=== PATIENT | female | born 1990 | race Caucasian/White ===

== ENCOUNTER 2018-03-10 12:50 | Inpatient (IN) | payer OTHER ==
[~2018-03-10] VITALS: Ht 162.6 cm; Wt 85.3 kg
[2018-03-10] MEDS ORDERED: RINGERS SOLUTION,LACTATED 1,000 ML IV PRN (12:55)
[2018-03-10] MEDS ORDERED: OXYTOCIN 30 UNITS/LACT RINGERS 500 ML IV ONE (12:55)
[2018-03-10] MEDS ORDERED: PNV1TABL54 PO (12:55)
[2018-03-10] MEDS ORDERED: CITRIC ACID/SODIUM CITRATE 30 ML SOLUTION UDCUP PO PRN (13:00)
[2018-03-10] MEDS ORDERED: LIDOCAINE HCL/PF 1% 30 ML VIAL INJ PRN (13:00)
[2018-03-10] MEDS ORDERED: METOCLOPRAMIDE HCL 5 MG/ML 2 ML VIAL IVP PRN (13:00)
[2018-03-10] MEDS ORDERED: OXYGEN THERAPY IH SCH (13:00)
[2018-03-10 13:23] LABS: BASOPHILS % (AUTO) 0.3 % (0.0-2.0); EOSINOPHILS % (AUTO) 0.4 % (1.0-6.0); HEMATOCRIT 38.8 % (36-46); HEMOGLOBIN 13.5 g/dL (12.0-16.0); LYMPHOCYTES # (AUTO) 2.7 K/uL (1.0-4.8); LYMPHOCYTES % (AUTO) 22.2 % (22.0-44.0); MEAN CORPUSCULAR HEMOGLOBIN 32.5 pg (26.0-34.0); MEAN CORPUSCULAR HGB CONC 34.8 G/dL (31.0-37.0); MEAN CORPUSCULAR VOLUME 93 fL (80-100); MONOCYTES # (AUTO) 0.6 K/uL (0.1-1.0); MONOCYTES % (AUTO) 5.1 % (2.0-9.0); NEUTROPHILS # (AUTO) 8.8 K/uL (1.8-7.7); PLATELET COUNT (AUTO) 242 K/uL (150-450); RED BLOOD CELL COUNT(AUTO) 4.15 MIL/uL (4.00-5.20); RED CELL DISTRIBUTION WIDTH 13.1 % (11.5-14.5)
[2018-03-10 13:40] VITALS: BP 116/72
[2018-03-10] MEDS ORDERED: DINOPROSTONE 10 MG VAGINAL SUPPOSITORY VG ONE (14:15)
[2018-03-10] MEDS: RINGERS SOLUTION,LACTATED 1,000 ML IV SCH ×3 (17:21→23:01)
[2018-03-10] MEDS: FentaNYL CITRATE-PF 100 MCG/2 ML VIAL IVP PRN ×4 (18:26→19:36)
[2018-03-10] MEDS ORDERED: ROPIVACAINE HCL/PF 0.2% 100 ML ED ONE (20:13)
[2018-03-10] MEDS ORDERED: LIDOCAINE HCL/PF 2% 5 ML VIAL ONE (20:37)
[2018-03-10] MEDS ORDERED: BUPIVACAINE HCL/PF 0.25% 10 ML VIAL ONE (21:42)
[2018-03-10] MEDS ORDERED: FentaNYL/BUPIV 0.125%/NS/PF 200 ML ED PRN (22:12)
[2018-03-10] MEDS ORDERED: ONDANSETRON HCL 4 MG/2 ML VIAL IVP PRN (22:15)
[2018-03-10] MEDS ORDERED: NALBUPHINE HCL 10 MG/ML VIAL IVP PRN (22:15)
[2018-03-10] MEDS ORDERED: DiphenhydrAMINE HCL 50 MG/ML VIAL IVP PRN (22:15)
[2018-03-11] MEDS ORDERED: OXYTOCIN 20 UNITS/LACT RINGERS 1,000 ML IV SCH (00:19)
[2018-03-11] MEDS ORDERED: ACETAMINOPHEN/CODEINE 300-30 MG TABLET PO PRN (00:30)
[2018-03-11] MEDS ORDERED: SENNA/DOCUSATE SODIUM 187-50 MG TABLET PO PRN (00:30)
[2018-03-11] MEDS ORDERED: LANOLIN 7 GM OINTMENT TP PRN (00:30)
[2018-03-11] MEDS ORDERED: BENZOCAINE 20%/MENTHOL 56 GM SPRAY CANISTER TP PRN (00:30)
[2018-03-11] MEDS ORDERED: GLYCERIN/WITCH HAZEL LEAF 40 PADS JAR TP PRN (00:30)
[2018-03-11] MEDS ORDERED: MEASLES/MUMPS/RUBELLA VACCINE, LIVE 0.5 ML/VIAL SQ ONE (00:30)
[2018-03-11] MEDS: IBUPROFEN 600 MG TABLET PO PRN ×2 (02:59→21:02)
[2018-03-11] MEDS: MAGNESIUM HYDROXIDE SUSPENSION 30 ML UDCUP PO PRN ×2 (08:43→21:02)
[2018-03-12 05:50] LABS: BASOPHILS % (AUTO) 0.2 % (0.0-2.0); EOSINOPHILS % (AUTO) 0.7 % (1.0-6.0); HEMATOCRIT 33.3 % (36-46); HEMOGLOBIN 11.5 g/dL (12.0-16.0); LYMPHOCYTES # (AUTO) 3.6 K/uL (1.0-4.8); LYMPHOCYTES % (AUTO) 30.9 % (22.0-44.0); MEAN CORPUSCULAR HEMOGLOBIN 32.3 pg (26.0-34.0); MEAN CORPUSCULAR HGB CONC 34.4 G/dL (31.0-37.0); MEAN CORPUSCULAR VOLUME 94 fL (80-100); MONOCYTES # (AUTO) 0.7 K/uL (0.1-1.0); MONOCYTES % (AUTO) 6.1 % (2.0-9.0); NEUTROPHILS # (AUTO) 7.3 K/uL (1.8-7.7); NEUTROPHILS % (AUTO) 62.1 % (40.0-70.0); PLATELET COUNT (AUTO)-OB 201 K/uL (150-450); RED BLOOD CELL COUNT(AUTO) 3.54 MIL/uL (4.00-5.20); RED CELL DISTRIBUTION WIDTH 13.1 % (11.5-14.5)
[2018-03-12] MEDS: IBUPROFEN 600 MG TABLET PO PRN (05:55)
[2018-03-12] MEDS: MAGNESIUM HYDROXIDE SUSPENSION 30 ML UDCUP PO PRN (09:05)
[2018-03-12] MEDS ORDERED: IBUP-2071 PO (09:39)
[2018-03-12] MEDS ORDERED: DSS100 PO (09:39)
[2018-03-12] MEDS ORDERED: FERR-89 PO (09:40)
== END 2018-03-12 11:40 | disposition home or self-care (01) | DRG 775 ==
LOC: 4S 12:50 → OBSVTOIN 12:50
PROVIDERS: ADMIT Obstetrics & Gynecology; ATTEND Obstetrics & Gynecology
PROC: 10E0XZZ Delivery of Products of Conception, External Approach (ICD-10-PCS; principal; 2018-03-11)
PROC: 0UQMXZZ Repair Vulva, External Approach (ICD-10-PCS; 2018-03-11)
PROC: 0UQGXZZ Repair Vagina, External Approach (ICD-10-PCS; 2018-03-11)
PROC: 3E033VJ Introduction of Other Hormone into Peripheral Vein, Percutaneous Approach (ICD-10-PCS; 2018-03-11)
PROC: 3E0R3BZ Introduction of Anesthetic Agent into Spinal Canal, Percutaneous Approach (ICD-10-PCS; 2018-03-11)
PROC: 00HU33Z Insertion of Infusion Device into Spinal Canal, Percutaneous Approach (ICD-10-PCS; 2018-03-11)
DX: O71.4 Obstetric high vaginal laceration alone (principal); O71.82 Other specified trauma to perineum and vulva; Z3A.41 41 weeks gestation of pregnancy; Z37.0 Single live birth
CPT/HCPCS: 86850; 86900; 86901; J2590; J2795; J3010; J3490; J7120

== ENCOUNTER 2019-09-27 20:20 | Inpatient (IN) | payer OTHER ==
[~2019-09-27] VITALS: Ht 161 cm; Wt 86.2 kg
[~2019-09-27 20:20] MED LIST: DSS100 PO; FERR-89 PO; IBUP-2071 PO; PNV1TABL54 PO
[2019-09-27 21:50] VITALS: BP 122/69
[2019-09-28] MEDS ORDERED: RINGERS SOLUTION,LACTATED 1,000 ML IV PRN (00:06)
[2019-09-28] MEDS ORDERED: OXYTOCIN 30 UNITS/LACT RINGERS 500 ML IV PRN (00:06)
[2019-09-28] MEDS ORDERED: OXYTOCIN 30 UNITS/LACT RINGERS 500 ML IV ONE (00:06)
[2019-09-28] MEDS ORDERED: CITRIC ACID/SODIUM CITRATE 30 ML SOLUTION UDCUP PO PRN (00:15)
[2019-09-28] MEDS ORDERED: METOCLOPRAMIDE HCL 5 MG/ML 2 ML VIAL IVP PRN (00:15)
[2019-09-28] MEDS ORDERED: INFLUENZA VIRUS VACCINE QVS 2019-20 (3YR+)/PF 60 MCG/0.5 ML SYRINGE IM ONE (00:15)
[2019-09-28 00:46] LABS: BASOPHILS % (AUTO) 0.3 % (0.0-2.0); EOSINOPHILS % (AUTO) 1.8 % (1.0-6.0); HEMATOCRIT 36.5 % (36-46); HEMOGLOBIN 12.3 g/dL (12.0-16.0); LYMPHOCYTES # (AUTO) 2.7 K/uL (1.0-4.8); LYMPHOCYTES % (AUTO) 28.9 % (22.0-44.0); MEAN CORPUSCULAR HEMOGLOBIN 32.1 pg (26.0-34.0); MEAN CORPUSCULAR HGB CONC 33.8 G/dL (31.0-37.0); MEAN CORPUSCULAR VOLUME 95 fL (80-100); MONOCYTES # (AUTO) 0.7 K/uL (0.1-1.0); MONOCYTES % (AUTO) 7.5 % (2.0-9.0); NEUTROPHILS # (AUTO) 5.7 K/uL (1.8-7.7); NEUTROPHILS % (AUTO) 61.5 % (40.0-70.0); PLATELET COUNT (AUTO)-OB 226 K/uL (150-450); RED BLOOD CELL COUNT(AUTO) 3.85 MIL/uL (4.00-5.20); RED CELL DISTRIBUTION WIDTH 13.3 % (11.5-14.5)
[2019-09-28] MEDS: RINGERS SOLUTION,LACTATED 1,000 ML IV SCH ×3 (01:01→05:46)
[2019-09-28] MEDS ORDERED: LIDOCAINE/PF 2% 5 ML VIAL ONE (01:27)
[2019-09-28] MEDS ORDERED: ROPIVACAINE HCL/PF 0.2% 100 ML ED ONE (01:27)
[2019-09-28] MEDS ORDERED: NALBUPHINE HCL 10 MG/ML VIAL IVP PRN (01:45)
[2019-09-28] MEDS ORDERED: ONDANSETRON HCL 4 MG/2 ML VIAL IVP PRN (01:45)
[2019-09-28] MEDS ORDERED: ROPIVACAINE HCL/PF 0.2% 100 ML ED PRN (01:45)
[2019-09-28] MEDS ORDERED: DiphenhydrAMINE HCL 50 MG/ML VIAL IVP PRN (01:45)
[2019-09-28] MEDS ORDERED: OXYGEN THERAPY IH SCH (08:00)
[2019-09-28] MEDS ORDERED: IBUPROFEN 600 MG TABLET PO PRN (12:30)
[2019-09-28] MEDS ORDERED: LANOLIN 7 GM OINTMENT TP PRN (12:30)
[2019-09-28] MEDS ORDERED: OxyCODONE HCL/ACETAMINOPHEN 5-325 MG TABLET PO PRN ×2 (12:30)
[2019-09-28] MEDS ORDERED: GLYCERIN/WITCH HAZEL LEAF 40 PADS JAR TP PRN (12:30)
[2019-09-28] MEDS ORDERED: BENZOCAINE 20%/MENTHOL 56 GM SPRAY CANISTER TP PRN (12:30)
[2019-09-28] MEDS: MAGNESIUM HYDROXIDE SUSPENSION 30 ML UDCUP PO SCH (21:14)
[2019-09-29] MEDS ORDERED: DINOPROSTONE 10 MG VAGINAL SUPPOSITORY VG ONE (02:00)
[2019-09-29 06:18] LABS: BASOPHILS % (AUTO) 0.4 % (0.0-2.0); EOSINOPHILS % (AUTO) 1.4 % (1.0-6.0); HEMATOCRIT 35.8 % (36-46); HEMOGLOBIN 12.5 g/dL (12.0-16.0); LYMPHOCYTES # (AUTO) 3.2 K/uL (1.0-4.8); LYMPHOCYTES % (AUTO) 31.4 % (22.0-44.0); MEAN CORPUSCULAR HGB CONC 34.9 G/dL (31.0-37.0); MEAN CORPUSCULAR VOLUME 95 fL (80-100); MONOCYTES # (AUTO) 0.7 K/uL (0.1-1.0); MONOCYTES % (AUTO) 7.4 % (2.0-9.0); NEUTROPHILS % (AUTO) 59.4 % (40.0-70.0); PLATELET COUNT (AUTO)-OB 208 K/uL (150-450); RED BLOOD CELL COUNT(AUTO) 3.79 MIL/uL (4.00-5.20); RED CELL DISTRIBUTION WIDTH 13.4 % (11.5-14.5)
[2019-09-29] MEDS ORDERED: IBUP-2071 PO (09:32)
[2019-09-29] MEDS ORDERED: DOCU-275 PO (09:33)
[2019-09-29] MEDS: MAGNESIUM HYDROXIDE SUSPENSION 30 ML UDCUP PO SCH (09:51)
== END 2019-09-29 12:50 | disposition home or self-care (01) | DRG 807 ==
LOC: 4S 20:20 → OBSVTOIN 20:20
PROVIDERS: ADMIT Obstetrics & Gynecology; ATTEND Obstetrics & Gynecology
PROC: 10E0XZZ Delivery of Products of Conception, External Approach (ICD-10-PCS; principal; 2019-09-28)
PROC: 3E0R3BZ Introduction of Anesthetic Agent into Spinal Canal, Percutaneous Approach (ICD-10-PCS; 2019-09-28)
PROC: 00HU33Z Insertion of Infusion Device into Spinal Canal, Percutaneous Approach (ICD-10-PCS; 2019-09-28)
DX: O80 Encounter for full-term uncomplicated delivery (principal); Z37.0 Single live birth; Z3A.38 38 weeks gestation of pregnancy
CPT/HCPCS: 86850; 86900; 86901; J2590; J2795; J3490; J7120